=== PATIENT | female | born 1975 | race Caucasian/White ===

== ENCOUNTER 2023-07-20 22:17 | Emergency (ER) | payer MEDICARE, SELFPAY ==
[2023-07-20 22:24] VITALS: BP 153/71; PULSE 93; RESP 18; TEMP 36.4; O2SAT 100; BMI 36.0
--- NOTE | 2023-07-20 22:52 | CTR_ITS ---
PROCEDURE INFORMATION: Exam: CT Head Without Contrast Exam date and time: 07/20/2023 11:09 PM Age: 48 years old Clinical indication: Injury or trauma; Fall; Blunt trauma (contusions or hematomas); Patient HX: HX of stroke, TECHNIQUE: Imaging protocol: Computed tomography of the head without contrast. Radiation optimization: All CT scans at this facility use at least one of these dose optimization techniques: automated exposure control; mA and/or kV adjustment per patient size (includes targeted exams where dose is matched to clinical indication); or iterative reconstruction. COMPARISON: No relevant prior studies available. RADIATION DOSE METRICS: Total DLP (mGy-cm): 1122.28 FINDINGS: Brain: No acute intracranial hemorrhage. No abnormal extra-axial fluid collection. No midline shift or mass effect. No acute large territory infarct. 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 Cerebral ventricles: No ventriculomegaly. Paranasal sinuses: Mild mucosal thickening in the left sphenoid sinus. No air-fluid levels. Mastoid air cells: Visualized mastoid air cells are well aerated. Bones/joints: Unremarkable. No acute fracture. Soft tissues: Unremarkable. CT/CT head wo con* [id number] IMPRESSION: 1. No acute intracranial abnormality identified. 2. 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
--- NOTE | 2023-07-20 22:52 | USR_ITS ---
PROCEDURE INFORMATION: Exam: US Abdomen, Limited; Right Upper Quadrant Exam date and time: 07/20/2023 11:40 PM Age: 48 years old Clinical indication: Abdominal pain; Other: Ruq; Patient HX: Normal tbili = 0.5; Normal ast = 16, normal alt = 6, normal alkphos = 87, normal lipase = 28. Only surgeries = appy in youth, tubal lig, total hyster. ; Additional info: Ruq pain TECHNIQUE: Imaging protocol: Real time ultrasound of the abdomen with image documentation. Limited exam focused on the right upper quadrant. COMPARISON: No relevant prior studies available. FINDINGS: Liver: Normal parenchyma. No masses. Liver measures 18.7 cm. Gallbladder: Normal. No gallstones. No gallbladder wall thickening. No sonographic Whitlock's sign. Biliary ducts: Normal. No stones. No dilation. CBD measures 3 mm. Pancreas: Visualized pancreas is unremarkable. Right kidney: Normal. No mass. No hydronephrosis. Right kidney measures 11 x 5.9 x 4 cm. Aorta: Normal aorta, with no aneurysm. Portal venous: Main portal vein and main hepatic vein appear widely patent, with normal hepatopetal flow within the main portal vein. US/US gall bladder [id number] IMPRESSION: No acute findings.
--- NOTE | 2023-07-20 23:04 | ED_ITS ---
HPI - Fall 2 General: Chief Complaint: Fall Stated Complaint: fall,abd pain Time Seen by Provider: 07/20/23 22:28 Source: patient Mode of arrival: ambulatory Limitations: no limitations History of Present Illness: 48-year-old female states she had a fall 1 week ago she did hit her head she is on Eliquis from her previous stroke her daughter became concerned because she noticed her pupils being unequal today did not notice them being unequal currently states she has had some headaches since her fall. States she is also had right upper quadrant pain started today states pain sharp in nature rates it a 5 out of 10 denies any fever or vomiting. Associated symptoms-after fall: Reports abdominal pain and headache(s); Denies chest pain or neck pain Review of Systems 2 Const: Denies: fever(s), chills, body aches or change in appetite Eyes: Denies: blurry vision or eye discomfort ENMT: Denies: throat pain or dental pain Card: Denies: chest pain Resp: Denies: dyspnea GI: Reports: abdominal pain; Denies: nausea, vomiting or diarrhea Musc: Denies: neck pain or back pain Skin/Breast: Denies: rash Neuro: Reports: headache(s) Physical Exam 2 Const: COMMON NORMALS: no acute distress, patient oriented x3 and healthy appearing HENMT: COMMON NORMALS: normocephalic and atraumatic HEAD & SCALP: n ormocephalic and atraumatic Eye: COMMON NORMALS: Equal, round and reactive pupils present and EOMs intact bilaterally PUPIL: Yes Equal, round and reactive pupils present Neck/C-Spine: COMMON NORMALS: full ROM and supple Chest: COMMONS NORMALS: normal inspection of the chest Resp: COMMON NORMALS: normal respiratory effort, No retractions, No use of accessory muscles and clear to auscultation bilaterally AUSCULTATION: clear to auscultation bilaterally Cardio: COMMON NORMALS: regular rate, regular rhythm and No murmurs present (Cardio) RATE: regular rate RHYTHM: regular rhythm GI: COMMON NORMALS: Normal to inspection, nondistended, normoactive bowel sounds present, Soft to palpation and no masses PALPATION: Yes Soft to palpation and Yes Tenderness to palpation present (GI) Details: RUQ Extremity: COMMON NORMALS: normal to inspection and full ROM Neuro: COMMON NORMALS: patient oriented x3, moves all extremities and no focal motor deficits Psych: COMMON NORMALS: mental status grossly normal, Normal thought process present and cooperative THOUGHT PROCESS: Normal thought process present Skin: COMMON NORMALS: no rashes or lesions noted and no wounds GENERAL SKIN EXAM: no rashes or lesions noted Course 2 Vital Signs: Vital signs: Vital Signs Temperature 97.5 F L 07/20/23 22:24 Pulse Rate 85 07/20/23 23:54 Respiratory Rate 16 07/20/23 23:54 Blood Pressure 123/88 07/20/23 23:54 Pulse Oximetry 97 07/20/23 23:54 Oxygen Delivery Me thod Room Air 07/20/23 22:24 MDM - Fall Medical Decision Making Patient presents here with headache and concern of unequal pupils after a fall and hitting her head her pupil exam here is benign head CT is normal no signs of a bleed she had some slight abdominal pain to her ultrasound and blood work are normal she is stable for discharge she is follow-up with PCP and return if worsening. Medical Records I reviewed the patient's medical records. Lab Data I reviewed the patient's lab results. 07/20/23 23:05 07/20/23 23:[address] 07/20/23 22:52 IMPRESSION: 1. No acute intracranial abnormality identified. 2. 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 Laboratory Results WBC 9.34 10^3/uL (3.29-11.43) 07/20/23 23:05 RBC 4.58 10^6/uL (3.85-5.65) 07/20/23 23:05 Hgb 13.80 g/dL (11.27-16.99) 07/20/23 23:05 Hct 41.8 % (36-47) 07/20/23 23:05 MCV 91.3 fl (85-98) 07/20/23 23:05 MCH 30.1 pg (27-33) 07/20/23 23:05 MCHC 33.0 g/dL (30-55) 07/20/23 23:05 RDW 14.1 % (12.1-15.1) 07/20/23 23:05 Plt Count 282 10^3/cmm (157-399) 07/20/23 23:05 MPV 9.4 fL (7.4-10.4) 07/20/23 23:05 Neut % (Auto) 56.7 % 07/20/23 23:05 Lymph % (Auto) 32.9 % 07/20/23 23:05 [place] % (Auto) 8.4 % 07/20/23 23:05 Eos % (Auto) 1.4 % 07/20/23 23:05 Baso % (Auto) 0.4 % 07/20/23 23:05 Neut # (Auto) 5.30 10^3/uL (1.8-7.7) 07/20/23 23:05 Lymph # (Auto) 3.1 10^3/uL (0.8-4.8) 07/20/23 23:05 [place] # (Auto) 0.8 10^3/uL (0.2-0.9) 07/20/23 23:05 Eos # (Auto) 0.1 10^3/uL (0.0-0.8) 07/20/23 23:05 Baso # (Auto) 0.0 10^3/uL (0.0-0.1) 07/20/23 23:05 Nucleated RBC % (auto) 0 % 07/20/23 23:05 Nucleated RBCs # 0.0 /100WBC 07/20/23 23:05 Sodium 139 mmol/L (136-145) 07/20/23 23:05 Potassium 3.8 mmol/L (3.5-5.1) 07/20/23 23:05 Chloride 101 mmol/L (98-107) 07/20/23 23:05 Carbon Dioxide 24 mmol/L (22-29) 07/20/23 23:05 Anion Gap 17.8 (5-19) 07/20/23 23:05 BUN 12 mg/dL (6-20) 07/20/23 23:05 Creatinine 0.8 mg/dL (0.5-0.9) 07/20/23 23:05 GFR Calculation 76.2 mL/min (90-130) L 07/20/23 23:05 Glucose 123 mg/dL (65-115) H 07/20/23 23:05 Calculated Osmolality 289 mOsm/kg (285-295) 07/20/23 23:05 Calcium 9.5 mg/dL (8.5-10.5) 01/18/24 23:05 Total Bilirubin 0.5 mg/dL (0.15-1.2) 07/20/23 23:05 AST 16 U/L (0-32) 07/20/23 23:05 ALT 6 U/L (0-33) 07/20/23 23:05 Alkaline Phosphatase 87 U/L (35-105) 07/20/23 23:05 Total Protein 7.0 g/dL (6.6-8.7) 07/20/23 23:05 Albumin 4.4 g/dL (3.5-5.2) 07/20/23 23:05 Globulin 2.6 g/dL (1.3-4.6) 07/20/23 23:05 Lipase 28 U/L (13-60) 07/20/23 23:05 All radiology interpretation(s) finalized by discharge Discharge Plan Discharge Patient Disposition: Home Clinical Impression: Closed head injury, Abdominal pain Condition: Stable Discharge Orders: Discharge ED (Routine); Ordered 07/21/23 Ordered By: Ko Calloway Referrals: Matt Johnson, DO [Family Provider] - Discharge Diet: Advance as tolerated Discharge Activity: Resume usual activity Patient Instructions: Head Injury (ED), Abdominal Pain (ED) Coding Level of Care Code ED [employer] for Lakeisha Monaco
[2023-07-20 23:13] LABS: Basophils % 0.4 %; Eosinophils # 0.1 10^3/uL (0.0-0.8); Eosinophils % 1.4 %; Hematocrit 41.8 % (36-47); Lymphocytes # 3.1 10^3/uL (0.8-4.8); Lymphocytes % 32.9 %; Mean Corpuscular Hemoglobin 30.1 pg (27-33); Mean Corpuscular Volume 91.3 fl (85-98); Mean Platelet Volume 9.4 fL (7.4-10.4); Monocytes # 0.8 10^3/uL (0.2-0.9); Monocytes % 8.4 %; Neutrophils % 56.7 %; Nucleated Red Blood Cells % 0 %; Platelet Count 282 10^3/cmm (157-399); Red Blood Count 4.58 10^6/uL (3.85-5.65); Red Cell Distribution Width 14.1 % (12.1-15.1); White Blood Count 9.34 10^3/uL (3.29-11.43)
[2023-07-20 23:29] LABS: Alanine Aminotransferase 6 U/L (0-33); Albumin Level 4.4 g/dL (3.5-5.2); Alkaline Phosphatase 87 U/L (35-105); Anion Gap 17.8 (5-19); Aspartate Amino Transferase 16 U/L (0-32); Blood Urea Nitrogen 12 mg/dL (6-20); Calcium 9.5 mg/dL (8.5-10.5); Carbon Dioxide 24 mmol/L (22-29); Chloride 101 mmol/L (98-107); Globulin 2.6 g/dL (1.3-4.6); Glomerular Filtration Rate 76.2 mL/min (90-130); Glucose 123 mg/dL (65-115); Lipase 28 U/L (13-60); Osmolality Calculated 289 mOsm/kg (285-295); Potassium 3.8 mmol/L (3.5-5.1); Sodium 139 mmol/L (136-145); Total Bilirubin 0.5 mg/dL (0.15-1.2)
[2023-07-20] MEDS: LORazepam 2 mg/mL INJ 10 mL MDV 1 MG IVP (23:52)
[2023-07-20 23:54] VITALS: BP 123/88; PULSE 85; RESP 16; O2SAT 97
[2023-07-21 00:19] VITALS: BP 115/69; PULSE 88; RESP 16; O2SAT 99
[2023-07-21 00:28] VITALS: BP 115/69; PULSE 88; RESP 16; TEMP 36.4; O2SAT 99
== END 2023-07-21 00:29 | disposition home or self-care (01) ==
PROVIDERS: Emergency Provider Emergency Medicine; Family Provider Family Medicine
DX: S09.8XXA Other specified injuries of head, initial encounter (principal); R10.11 Right upper quadrant pain; Z79.01 Long term (current) use of anticoagulants; W19.XXXA Unspecified fall, initial encounter
CPT/HCPCS: 70450; 76705; 80053; 83690; 85025; 96374; 99285; J2060